=== PATIENT | female | born 1995 | race Caucasian/White ===

== ENCOUNTER 2025-01-16 05:46 | Emergency (ER) | payer OTHER ==
[~2025-01-16] VITALS: Ht 162.6 cm; Wt 69.0 kg
[2025-01-16 06:16] VITALS: O2SAT 99
[2025-01-16] MEDS ORDERED: MAGNESIUM/ALUMINUM HYDROXIDE/SIMETHICONE 30ML UDC PO STA (07:00)
[2025-01-16] MEDS ORDERED: ONDANSETRON 4MG ODT PO STA (07:00)
[2025-01-16] MEDS ORDERED: VISCOUS LIDOCAINE 2% 15 ML UDC PO STA (07:00)
[2025-01-16] MEDS ORDERED: ACETAMINOPHEN 325MG TABLET PO STA (07:00)
[2025-01-16] MEDS: ONDANSETRON 4MG ODT PO NR (08:25)
[2025-01-16] MEDS: ACETAMINOPHEN 325MG TABLET PO NR (08:26)
[2025-01-16] MEDS: MAGNESIUM/ALUMINUM HYDROXIDE/SIMETHICONE 30ML UDC PO NR (08:26)
[2025-01-16] MEDS: VISCOUS LIDOCAINE 2% 15 ML UDC PO NR (08:26)
[2025-01-16] MEDS: DICYCLOMINE 10 MG/5 ML ORAL SYR PO STA (08:50)
[2025-01-16 09:11] LABS: BASOPHILS % 0.1 % (0.0-2.0); DIFFERENTIAL COMMENT 0; HEMATOCRIT. 39.7 % (36.0-48.0); HEMOGLOBIN. 13.1 g/dL (12.0-16.0); LYMPHOCYTES % 20.9 % (20.0-50.0); MEAN CORPUSCULAR HEMOGLOBIN 25.8 pg (28.0-32.0); MEAN CORPUSCULAR HGB CONC 33.1 g/dL (31.0-37.0); MEAN CORPUSCULAR VOLUME 77.9 fL (81.0-99.0); MEAN PLATELET VOLUME 9.2 fl (7.4-10.4); MONOCYTES % 4.3 % (2.0-8.0); NEUTROPHILS % 74.7 % (40.0-76.0); PLATELET 321 x1000/uL (130-400); RED CELL DISTRIBUTION WIDTH 13.4 % (11.6-14.6); WHITE BLOOD COUNT 7.9 x1000/uL (4.5-11.0)
[2025-01-16 09:28] LABS: CHLORIDE 103 mEq/L (98-107); POTASSIUM 3.5 mEq/L (3.5-5.1); SODIUM 136 mEq/L (136-145)
[2025-01-16 09:30] LABS: CARBON DIOXIDE 22 mEq/L (21-32)
[2025-01-16 09:31] LABS: CALCIUM 9.3 mg/dL (8.7-10.4)
[2025-01-16 09:35] LABS: CREATININE 0.7 mg/dL (0.6-1.0); GLUCOSE 118 mg/dL (70-105)
[2025-01-16 09:36] LABS: UREA NITROGEN BLOOD 8 mg/dL (9-23)
[2025-01-16 09:37] LABS: ALANINE AMINOTRANSFERASE 41 IU/L (10-49); ALBUMIN 4.7 g/dL (3.2-4.8); ASPARTATE AMINOTRANSFERASE 21 IU/L (<34)
[2025-01-16 09:38] LABS: BILIRUBIN DIRECT 0.2 mg/dL (<=3.0); BILIRUBIN TOTAL 0.6 mg/dL (0.1-1.0); PROTEIN TOTAL 7.6 g/dL (6.0-8.3)
[2025-01-16 09:43] LABS: HCG SCREEN NEGATIVE
[2025-01-16 09:45] LABS: CLARITY URINE CLOUDY (CLEAR); COLOR URINE DARK YELLOW (YELLOW); GLUCOSE URINE NEGATIVE (NEGATIVE); KETONES URINE TRACE (NEGATIVE); LEUKOCYTE ESTERASE URINE 1+ (NEGATIVE); NITRITE URINE NEGATIVE (NEGATIVE); OCCULT BLOOD URINE NEGATIVE (NEGATIVE); PROTEIN URINE 2+ (NEGATIVE)
[2025-01-16] MEDS ORDERED: CEPH500C2 PO (09:49)
[2025-01-16 09:58] VITALS: BP 134/87; PULSE 60; RESP 16; TEMP 36.8; O2SAT 100
[2025-01-16 10:07] LABS: MUCUS URINE 3+ /lpf (< = 2+)
[2025-01-16 10:09] LABS: BACTERIA URINE 1+; RBC URINE NONE SEEN /hpf (0-2)
[2025-01-16 10:10] LABS: SQUAMOUS EPITHELIAL CELL URINE 3+ /lpf (RARE/1+)
== END 2025-01-16 10:27 | disposition home or self-care (01) ==
LOC: ER 05:46
DX: N39.0 Urinary tract infection, site not specified (principal); Z79.899 Other long term (current) drug therapy
CPT/HCPCS: 99284; 80076; 80048; 81003; 81025; 84703; 83690; 85025; 36415; Q0162